=== PATIENT | male | born 1960 | race African-American/Black ===

== ENCOUNTER → 2020-02-03 | Outpatient (CLI) | payer OTHER ==
--- NOTE | 2020-02-03 13:10 | RAD ---
KNEE LEFT 2V DATE: 02/03/2020 12:00 AM INDICATION: Reason: LEFT KNEE PAIN / Spl. Instructions: / History: COMPARISON: None. FINDINGS: Bones: There is no evidence of acute fracture or dislocation. Joints: Mild tricompartmental degenerative changes. There is no joint effusion. Miscellaneous: Atherosclerotic vascular calcifications IMPRESSION: No acute osseous abnormality. Mild tricompartmental degenerative changes. Electronically signed by: Juan Frazier MD (02/03/2020 1:07 PM) [id number]
--- NOTE | 2020-02-03 13:12 | RAD ---
HAND RIGHT 2V DATE: 02/03/2020 12:00 AM INDICATION: RIGHT HAND PAIN COMPARISON: None. FINDINGS: Bones: There is no evidence of acute fracture or dislocation. Joints: Mild degenerative changes of the IP joints and radiocarpal joint. Miscellaneous: No erosions or periarticular calcifications. Atherosclerotic vascular calcifications IMPRESSION: No acute osseous abnormality. Mild degenerative changes. Electronically signed by: Juan Frazier MD (02/03/2020 1:09 PM) [id number]
== END | disposition home or self-care (01) ==
LOC: RAD 09:10
PROVIDERS: ATTEND Anesthesiology Pain Medicine
DX: M19.031 Primary osteoarthritis, right wrist (principal); M17.12 Unilateral primary osteoarthritis, left knee
CPT/HCPCS: 73120; 73560